=== PATIENT | female | born 1990 | race Caucasian/White ===

== ENCOUNTER 2018-04-24 16:44 | Emergency (ER) | payer OTHER, BC ==
[2018-04-24] MEDS ORDERED: IBUPROFEN 400 MG TABLET (FP) PO ONE (16:58)
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
[2018-04-24 16:59] VITALS: BP 119/86; PULSE 68; TEMP 98; BMI 20.3
[2018-04-24] MEDS ORDERED: NAPROXEN 500 MG TABLET (FP) PO ONE (18:16)
[2018-04-24] MEDS ORDERED: NAPROXEN 500 MG TABLET (FP) ONE (18:17)
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
== END 2018-04-24 18:18 | disposition home or self-care (01) ==
LOC: JERFT 16:44
DX: S13.4XXA Sprain of ligaments of cervical spine, initial encounter (principal); V43.52XA Car driver injured in collision with other type car in traffic accident, initial encounter; Y92.488 Other paved roadways as the place of occurrence of the external cause; Y93.89 Activity, other specified; Y99.8 Other external cause status
CPT/HCPCS: 99281-25